=== PATIENT | female | born 1990 | race Two or more races ===

== ENCOUNTER → 2020-07-18 | Outpatient (CLI) | payer SELFPAY | LOC: M LABSMTC 11:44 | PROVIDERS: ATTEND Pediatrics | DX: Z20.828 Contact with and (suspected) exposure to other viral communicable diseases (principal) ==

== ENCOUNTER 2020-12-22 15:22 | Emergency (ER) | payer OTHER, SELFPAY ==
[~2020-12-22] VITALS: Ht 170.2 cm; Wt 60.9 kg
[2020-12-22] MEDS ORDERED: birth control PO (15:37)
[2020-12-22] MEDS ORDERED: diphenhydrAMINE 50MG/ML VIAL (J1200) IV STA (20:49)
[2020-12-22] MEDS ORDERED: NS 1,000 ML IV ONE (20:50)
[2020-12-22] MEDS ORDERED: KETOROLAC 30 MG/ML 1ML VIAL IV ONE (20:50)
[2020-12-22] MEDS ORDERED: ONDANSETRON 4MG/2ML VIAL IV ONE (22:05)
[2020-12-23 00:07] VITALS: BP 121/67
== END 2020-12-23 00:09 | disposition home or self-care (01) ==
LOC: M ED 15:22
DX: G43.909 Migraine, unspecified, not intractable, without status migrainosus (principal)
CPT/HCPCS: 84702; 96361; 96374; 96375; 99284; J1200; J1885; J2405